=== PATIENT | male | born 2000 | race Caucasian/White ===

== ENCOUNTER 2023-10-15 19:25 | Inpatient (IN) | payer OTHER ==
[2023-10-15] MEDS ORDERED: SODIUM CHLORIDE 0.9% 500 ML INFUS.BAG IV ONE (20:13)
[2023-10-15] MEDS ORDERED: ONDANSETRON 4 MG/2 ML VIAL IVPUSH ONE (20:13)
[2023-10-15 21:34] LABS: BASO % 0.8 % (0-2.0); EOS % 0.8 % (0-4.5); HEMATOCRIT 51.9 % (35.4-49); HEMOGLOBIN 17.4 GM/dL (11.7-16.9); LYMPH % 17.2 % (8-40); MCH 29.9 pg (25.7-33.7); MCHC 33.6 g/dl (32.0-35.9); MEAN CELL VOLUME 88.9 fl (80-96); MEAN PLT VOLUME 10.7 fl (7.5-11.1); MONO % 6.2 % (3.8-10.2); PLATELET COUNT 268 10^3/uL (134-434); RBC 5.84 M/mm3 (4.00-5.60); RDW 13.1 % (11.9-15.9); WHITE BLOOD COUNT 12.9 K/mm3 (4.0-10.0)
[2023-10-15 22:16] LABS: POTASSIUM 5.8 mmol/L (3.5-5.1)
[2023-10-15 22:18] LABS: CALCIUM 9.5 mg/dL (8.5-10.1)
[2023-10-15 22:19] LABS: ALBUMIN 4.2 g/dl (3.4-5.0); BLOOD UREA NITROGEN 9.6 mg/dL (7-18)
[2023-10-15 22:22] LABS: CREATININE 1.3 mg/dL (0.55-1.3)
[2023-10-15 22:23] LABS: BILIRUBIN,TOTAL 4.1 mg/dL (0.2-1); TOT PROT 7.9 g/dl (6.4-8.2)
[2023-10-16] MEDS ORDERED: SODIUM CHLORIDE 0.9% 500 ML INFUS.BAG IV ONE (08:33)
[2023-10-16] MEDS ORDERED: LACTATED RINGERS SOLUTION 1000 ML INFUS.BAG IV ONE (08:45)
[2023-10-16 09:07] LABS: POTASSIUM 3.9 mmol/L (3.5-5.1)
[2023-10-16 09:09] LABS: CALCIUM 9.5 mg/dL (8.5-10.1)
[2023-10-16 09:10] LABS: ALBUMIN 4.3 g/dl (3.4-5.0); BLOOD UREA NITROGEN 9.3 mg/dL (7-18)
[2023-10-16 09:12] LABS: BILIRUBIN,DIRECT 0.5 mg/dL (0.0-0.2)
[2023-10-16] MEDS ORDERED: ENOXAPARIN NA (PORCINE) 40 MG/0.4 ML DISP.SYRIN SQ ONE (09:12)
[2023-10-16 09:13] LABS: CREATININE 1.1 mg/dL (0.55-1.3)
[2023-10-16 09:14] LABS: TOT PROT 7.6 g/dl (6.4-8.2)
[2023-10-16] MEDS: ENOXAPARIN NA (PORCINE) 40 MG/0.4 ML DISP.SYRIN SQ SCH (09:52)
[2023-10-17 08:44] LABS: BASO % 0.5 % (0-2.0); EOS % 2.1 % (0-4.5); HEMATOCRIT 45.7 % (35.4-49); HEMOGLOBIN 15.5 GM/dL (11.7-16.9); LYMPH % 35.4 % (8-40); MCH 30.3 pg (25.7-33.7); MEAN CELL VOLUME 89.1 fl (80-96); MEAN PLT VOLUME 10.4 fl (7.5-11.1); MONO % 8.2 % (3.8-10.2); NEUT % 53.8 % (42.8-82.8); PLATELET COUNT 238 10^3/uL (134-434); RBC 5.13 M/mm3 (4.00-5.60)
[2023-10-17 08:53] LABS: POTASSIUM 3.8 mmol/L (3.5-5.1)
[2023-10-17 08:57] LABS: CALCIUM 9.8 mg/dL (8.5-10.1)
[2023-10-17 08:58] LABS: BLOOD UREA NITROGEN 12.6 mg/dL (7-18); MAGNESIUM 2.1 mg/dL (1.8-2.4)
[2023-10-17 09:01] LABS: CREATININE 1.2 mg/dL (0.55-1.3); PHOSPHOROUS 3.7 mg/dL (2.5-4.9)
[2023-10-17] MEDS: ENOXAPARIN NA (PORCINE) 40 MG/0.4 ML DISP.SYRIN SQ SCH (09:14)
[2023-10-18 10:30] LABS: BASO % 0.8 % (0-2.0); EOS % 2.3 % (0-4.5); HEMATOCRIT 47.3 % (35.4-49); LYMPH % 30.6 % (8-40); MCH 29.7 pg (25.7-33.7); MCHC 33.8 g/dl (32.0-35.9); MEAN PLT VOLUME 10.3 fl (7.5-11.1); MONO % 8.8 % (3.8-10.2); NEUT % 57.5 % (42.8-82.8); PLATELET COUNT 242 10^3/uL (134-434); RBC 5.37 M/mm3 (4.00-5.60); RDW 12.8 % (11.9-15.9); WHITE BLOOD COUNT 7.8 K/mm3 (4.0-10.0)
[2023-10-18] MEDS ORDERED: ENOXAPARIN NA (PORCINE) 40 MG/0.4 ML DISP.SYRIN SQ ONE (10:32)
[2023-10-18] MEDS: ENOXAPARIN NA (PORCINE) 40 MG/0.4 ML DISP.SYRIN SQ SCH (10:50)
[2023-10-18 10:51] LABS: POTASSIUM 4.1 mmol/L (3.5-5.1)
[2023-10-18 11:06] LABS: CALCIUM 10.1 mg/dL (8.5-10.1)
[2023-10-18 11:10] LABS: CREATININE 1.3 mg/dL (0.55-1.3)
[2023-10-18 11:11] LABS: BILIRUBIN,TOTAL 1.8 mg/dL (0.2-1); TOT PROT 7.2 g/dl (6.4-8.2)
[2023-10-18 13:45] VITALS: BP 148/94; PULSE 79; RESP 18; TEMP 98.8; BMI 34.1
[2023-10-19] MEDS ORDERED: ARIPiprazole 10 MG TABLET PO SCH (10:00)
[2023-10-19] MEDS ORDERED: ESCITALOPRAM OXALATE 20 MG TABLET PO SCH (10:00)
[2023-10-20 01:07] LABS: IG G QN IMMUNOGLOBULIN 868 mg/dL (603-1613); IGG SUBCLASS 1 495 mg/dL (248-810); IGG SUBCLASS 2 225 mg/dL (130-555); IGG SUBCLASS 3 15 mg/dL (15-102)
== END 2023-10-18 15:08 | disposition home or self-care (01) ==
LOC: JER 19:25 → JERBED 10-16 00:14 → OBSVTOIN 10-16 08:31 → J8W 10-18 13:50
PROVIDERS: ADMIT Internal Medicine; ATTEND Internal Medicine
DX: K80.20 Calculus of gallbladder without cholecystitis without obstruction (principal); R17 Unspecified jaundice; F41.8 Other specified anxiety disorders; R74.01 Elevation of levels of liver transaminase levels
CPT/HCPCS: 36415; 74176-TC; 74181-TC; 76705-TC; 80048; 80053; 80076; 80307; 82784; 82787; 83516; 83690; 83735; 83883; 84100; 84443; 85025; 86038; 86704; 86708; 86709; 86803; 87340; 87517; 93005; 93010; 99285-25; G0378